=== PATIENT | male | born 2000 | race Caucasian/White ===

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

== ENCOUNTER → 2023-08-20 | Outpatient (CLI) | payer BC ==
--- NOTE | 2023-08-20 11:54 | FL ---
EXAMINATION TYPE: FL UGI air w small bowel DATE OF EXAM: 08/20/2023 COMPARISON: NONE HISTORY: Abdominal pain TECHNIQUE: A double contrast UGI study is performed with small bowel follow through. A total of 2 m inutes and 5 seconds of fluoroscopic time was utilized during procedure and 28 images obtained. Tota l dose area product (DAP) in uGy*m?, mGy*cm? (or similar): Not provided. FINDINGS: [facility] image of the abdomen shows no gross abnormality. The esophagus shows normal motility and emptying into the stomach. No evidence of hiatal hernia or s tricture noted. The stomach shows normal distensibility, peristalsis, and mucosal folds. No evidence of any mass or ulcer disease. There is significant esophageal reflux was seen during real time performance of this s tudy to the level the cervical esophagus. The duodenal bulb and sweep are unremarkable. The small bowel study shows normal transit to the colon in less than 45 minutes. There is normal muc osal fold pattern throughout the small bowel. There is no evidence of any stricture or filling defec t noted. The terminal ileum is unremarkable. IMPRESSION: 1. Extensive gastroesophageal reflux to the level of the cervical esophagus. Recommend follow-up EGD to assess for reflux esophagitis.
== END | disposition home or self-care (01) ==
LOC: RADFLMAIN 07:52
PROVIDERS: ATTEND Internal Medicine Gastroenterology
DX: K21.9 Gastro-esophageal reflux disease without esophagitis (principal); R10.9 Unspecified abdominal pain
CPT/HCPCS: 74240; 74248